=== PATIENT | female | born 1940 | race Caucasian/White ===

== ENCOUNTER 2017-06-18 18:50 | Inpatient (IN) | payer MEDICARE, MEDICAID ==
[2017-06-18 19:02] VITALS: BMI 25.5
[2017-06-18] MEDS ORDERED: Sodium Chloride 0.9% 1,000 ML IV ONE (19:27)
--- NOTE | 2017-06-18 19:33 | C.PDOC ---
History Of Present Illness 76 y/o female with past medical history of hypertension, hyperlipidemia and chronic back pain presents to the ED complaining of abdominal pain along with chest pain associated with vomiting (clear), diarrhea (with black tarry stool) and headache. Pain is constant. Last oral intake was in the morning when patient had toast. Patient also notes dizziness and SOB. Denies any further medical complaints. Chief Complaint (Nursing): Abdominal Pain History Per: Patient History/Exam Limitations: no limitations Past Medical History Reviewed: Historical Data, Nursing Documentation, Vital Signs Vital Signs: Last Vital Signs Temp 97.7 F 06/18/17 19:02 Pulse 60 06/18/17 23:03 Resp 16 06/18/17 23:03 BP 112/80 06/18/17 23:03 Pulse Ox 98 06/18/17 23:03 - Medical History PMH: Back Problems (Chronic back pain), HTN, Hyperlipidemia Surgical History: No Surg Hx Family History: States: Unknown Family Hx - Social History Hx Alcohol Use: No Hx Substance Use: No - Immunization History Hx Tetanus Toxoid Vaccination: No Hx Influenza Vaccination: Yes Hx Pneumococcal Vaccination: Yes Review Of Systems Except As Marked, All Systems Reviewed And Found Negative. (As per HPI, otherwise negative) Cardiovascular: Positive for: Chest Pain Gastrointestinal: Positive for: Vomiting, Abdominal Pain, Diarrhea Neurological: Positive for: Headache, Dizziness Physical Exam - Physical Exam Appears: Other (Patient appears in pain) Skin: Normal Color, Warm, Dry Head: Atraumatic, Normacephalic Eye(s): bilateral: Normal Inspection, PERRL, EOMI Nose: Normal Throat: Normal Neck: Normal, Supple Chest: Symmetrical, No Deformity Cardiovascular: Rhythm Regular, No Murmur Respiratory: Decreased Breath Sounds, No Accessory Muscle Use Gastrointestinal/Abdominal: Tenderness (Abdominal tenderness reduced to chest), No Guarding, No Rebound Rectal: Normal Exam Back: CVA Tenderness Extremity: No Tenderness, No Calf Tenderness, No Deformity, No Swelling Pulses: Left Dorsalis Pedis: Normal, Right Dorsalis Pedis: Normal Neurological/Psych: Oriented x3 ED Course And Treatment - Laboratory Results Result Diagrams: 06/18/17 20:02 06/18/17 20:02 ECG: Interpreted By Me, Viewed By Me ECG Rhythm: Sinus Rhythm ECG Interpretation: Normal Interpretation Of ECG: No ST or ST wave changes Rate From EC O2 Sat by Pulse Oximetry: 97 (RA) Pulse Ox Interpretation: Normal - CT Scan/US CT abd/pel Other Rad Studies (CT/US): Read By Radiologist, Radiology Report Reviewed CT/US Interpretation: EXAM: CT Abdomen and Pelvis With Intravenous Contrast. CLINICAL HISTORY: 76 years old, female; Pain; Abdominal pain; Generalized; Additional info: Abd pain. TECHNIQUE: Axial computed tomography images of the abdomen and pelvis with intravenous contrast. All CT. scans at this facility use one or more dose reduction techniques, viz.: automated exposure control;. ma/kV adjustment per patient size (including targeted exams where dose is matched to indication; i.e. head); or iterative reconstruction technique. Coronal and sagittal reformatted images were created and reviewed. CONTRAST: 100 mL of [id number] administered intravenously. COMPARISON: No relevant prior studies available. FINDINGS: Limitations: Motion artifact - mild. Lower thorax: Minimal atelectasis/scarring. Contrast within distal esophagus may represent reflux. ABDOMEN: Liver: Mild fatty infiltration. Gallbladder and bile ducts: No calcified stones. No ductal dilation. Pancreas: No ductal dilation. No mass. Spleen: Small splenic calcification. No splenomegaly. Adrenals: No mass. Kidneys and ureters: No mass. No hydronephrosis. Stomach and bowel: Few mildly thickened loops of distal small bowel. Mild stranding within. associated small bowel mesentery. No obstruction. Appendix: Normal caliber. No inflammation. PELVIS: Bladder: Unremarkable. Reproductive: Unremarkable as visualized. ABDOMEN and PELVIS: Intraperitoneal space: Trace free fluid within pelvis. No free air. Bones/joints: Degenerative changes of spine. Chronic compression deformity T12 vertebral body. Soft tissues: Small umbilical hernia containing fat. Vasculature: Vnlf-oo-xybivbzz atherosclerotic disease. No aneurysm. Lymph nodes: No pathologically enlarged lymph nodes. IMPRESSION: 1. Enteritis, nonspecific. Consider inflammatory, infectious, or ischemic etiologies. 2. Incidental/non-acute findings are described above. Medical Decision Making Medical Decision Making: Time: 19:27 Plan: Abd pelvis PO and IV contrast EKG BNP Lipase Troponin I CBC w/ diff Chest x-ray Morphine 4mg IVP Ondansetron 4mg IVP Pantoprazole 40mg IVP Sodium chloride 1L IV ED obtain labs Saline lock 3ml NS Urinalysis Reevalaution Will admit to med/surg for abdominal pain under Dr. Sharri Suh's service. Scribe Attestation: Documented by Jeanmarie Suh acting as a scribe for Real Ledezma MD. Scribe Attestation: All medical record entries made by the Scribe were at my direction and personally dictated by me. I have reviewed the chart and agree that the record accurately reflects my personal performance of the history, physical exam, medical decision making, and the department course for this patient. I have also personally directed, reviewed, and agree with the discharge instructions and disposition. Disposition - Disposition Forms: [employer] ([place])
[2017-06-18] MEDS ORDERED: Sodium Chloride 0.9% 1,000 ML ONE (19:47)
[2017-06-18] MEDS ORDERED: Morphine 4 MG/ML VIAL ONE (19:47)
[2017-06-18 20:09] LABS: BASO % 0.2 % (0.0-2.0); EOS % 0.1 % (0.0-4.0); HEMOGLOBIN 13.7 g/dL (11.0-16.0); LYMPH # 0.3 K/uL (1.0-4.3); LYMPH % 2.4 % (20.0-40.0); MEAN CELL VOLUME 91.4 fL (81.0-99.0); MEAN CORPUSCULAR HEMOGLOBIN 30.6 pg (27.0-31.0); MEAN CORPUSCULAR HGB CONC 33.4 g/dL (33.0-37.0); MONO # 0.4 K/uL (0.0-0.8); MONO % 3.4 % (0.0-10.0); NEUT # 11.6 K/uL (1.8-7.0); NEUT % 93.9 % (50.0-75.0); PLATELET COUNT 149 K/uL (130-400); RBC 4.48 Mil/uL (3.80-5.20); RED CELL DISTRIBUTION WIDTH 13.5 % (11.5-14.5); WHITE BLOOD COUNT 12.3 K/uL (4.8-10.8)
[2017-06-18 20:24] LABS: ALB/GLOB RATIO 1.3 (1.0-2.1); ALT/SGPT 43 U/L (9-52); AST/SGOT 30 U/L (14-36); BLOOD UREA NITROGEN 17 mg/dL (7-17); CALCIUM 8.8 mg/dl (8.6-10.4); GFR AFRICAN-AMERICAN > 60; GFR NON-AFRICAN AMERICAN > 60; LIPASE 68 U/L (23-300)
[2017-06-18 20:25] LABS: SQUAMOUS EPITHIAL 1 /hpf (0-5); URINE BACTERIA RARE (<OCC); URINE BILIRUBIN NEGATIVE (NEGATIVE); URINE BLOOD 1+ (NEGATIVE); URINE CALCIUM OXALATE CRYSTALS MANY /hpf (<OCC); URINE CLARITY Hazy (Clear); URINE COLOR Amber (YELLOW); URINE GLUCOSE (UA) NORMAL (Normal); URINE LEUKOCYTE ESTERASE NEG Leu/uL (Negative); URINE NITRATE NEGATIVE (NEGATIVE); URINE PROTEIN NEGATIVE (NEGATIVE); URINE UROBILINOGEN NORMAL mg/dL (0.2-1.0)
[2017-06-18 20:37] LABS: B-TYPE NATRIURETIC PEPTIDE 107 pg/mL (0-900)
[2017-06-18] MEDS ORDERED: Iohexol 240 (50 ml) PO ONE (20:38)
[2017-06-18 20:40] LABS: BANDS 19 % (0-2); LYMPHOCYTE 5 % (20-40); MONOCYTE 3 % (0-10); NEUTROPHIL 73 % (50-75); PLATELET ESTIMATE NORMAL (NORMAL); TOTAL CELLS COUNTED 100
[2017-06-18] MEDS ORDERED: Iohexol 240 (50 ml) ONE (20:42)
[2017-06-18] MEDS ORDERED: Piperacillin/Tazobact 3.375 gm 100 ML IVPB STA (20:47)
[2017-06-18] MEDS ORDERED: Iohexol 300 100 ML IJ ONE (21:04)
[2017-06-18] MEDS ORDERED: Piperacill/Tazo 3.375gm in Dex 3.375 GM/50 ML BAG IVPB ONE (22:00)
[2017-06-18] MEDS ORDERED: Piperacillin/Tazobact 3.375 gm 100 ML IVPB ONE (22:00)
--- NOTE | 2017-06-18 22:55 | CT ---
EXAM: CT Abdomen and Pelvis With Intravenous Contrast CLINICAL HISTORY: 76 years old, female; Pain; Abdominal pain; Generalized; Additional info: Abd pain TECHNIQUE: Axial computed tomography images of the abdomen and pelvis with intravenous contrast. All CT scans at this facility use one or more dose reduction techniques, viz.: automated exposure control; ma/kV adjustment per patient size (including targeted exams where dose is matched to indication; i.e. head); or iterative reconstruction technique. Coronal and sagittal reformatted images were created and reviewed. CONTRAST: 100 mL of [id number] administered intravenously. COMPARISON: No relevant prior studies available. FINDINGS: Limitations: Motion artifact - mild. Lower thorax: Minimal atelectasis/scarring. Contrast within distal esophagus may represent reflux. ABDOMEN: Liver: Mild fatty infiltration. Gallbladder and bile ducts: No calcified stones. No ductal dilation. Pancreas: No ductal dilation. No mass. Spleen: Small splenic calcification. No splenomegaly. Adrenals: No mass. Kidneys and ureters: No mass. No hydronephrosis. Stomach and bowel: Few mildly thickened loops of distal small bowel. Mild stranding within associated small bowel mesentery. No obstruction. Appendix: Normal caliber. No inflammation. PELVIS: Bladder: Unremarkable. Reproductive: Unremarkable as visualized. ABDOMEN and PELVIS: Intraperitoneal space: Trace free fluid within pelvis. No free air. Bones/joints: Degenerative changes of spine. Chronic compression deformity T12 vertebral body. Soft tissues: Small umbilical hernia containing fat. Vasculature: Quyp-gj-ryfvhcah atherosclerotic disease. No aneurysm. Lymph nodes: No pathologically enlarged lymph nodes. IMPRESSION: 1. Enteritis, nonspecific. Consider inflammatory, infectious, or ischemic etiologies. 2. Incidental/non-acute findings are described above.
[2017-06-19] MEDS ORDERED: HYDROmorphone 1 mg/ml ISec IVP PRN (00:32)
[2017-06-19 01:42] VITALS: RESP 20
[2017-06-19] MEDS: Ciprofloxacin 400mg/200ml D5W 400 MG/200 ML BAG IVPB SCH ×2 (02:07→13:58)
[2017-06-19] MEDS: metroNIDAZOLE IV 500 mg/100 ml 500 MG/100 ML BAG IVPB SCH ×3 (05:55→22:04)
--- NOTE | 2017-06-19 06:29 | CP.PCM.CON ---
<Damaso Saldana - Last Filed: 06/19/17 09:26> History of Present Illness - History of Present Illness History of Present Illness: GI Consult Note: 76 F with PMHx of HTN, HLD, and chronic back pain presents to the ED with abdominal pain accompanied with nausea and vomiting . Patient states yesterday morning at 8am she started to have severe periumbilical abdominal. The pain was non radiating and 7/10 at its worse. The abdominal pain was associated with 2 bouts of non bloody non bilious vomiting and more than 15 episodes of non bloody diarrhea. She states that she tried going to [place] yesterday but she wasn't able to go due to the diarrhea. She denied having any of these symptoms before. Denied any sick contacts or recent travel. No recent history of antibiotics use. Denies any fever, chills, sob, chest pain, palpitations, urinary symptoms. In the ED patient found to have leukocytosis to 12.1 with bandemia, CT abd&pelv with IV contrast showed enteritis - consider inflammatory , infectious, or ischemia. GI team consulted for abdominal pain. 12 Point ROS performed and negative other than stated above. PMH: HTN, HLD, and chronic back pain PSHx: denies Med: refer to [facility] ALL: NKA FH: denies SH: Retired; denies any history of smoking, etoh abuse, or recreational drug use Endo Hx: Endoscopy performed 2 years ago - and colonoscopy 5 years ago - both normal Review of Systems - Review of Systems All systems: reviewed and no additional remarkable complaints except Past Patient History - Past Social History Smoking Status: Never Smoked - CARDIAC Hx Hypertension: Yes - ENDOCRINE/METABOLIC Hx Diabetes Mellitus Type 1: No - MUSCULOSKELETAL/RHEUMATOLOGICAL Hx Falls: No - PSYCHIATRIC Hx Substance Use: No - SURGICAL HISTORY Hx Surgeries: No Other/Comment: HEMMORHOIDECTOMY 10 YRS AGO - ANESTHESIA Hx Anesthesia: Yes Hx Anesthesia Reactions: No Meds Allergies/Adverse Reactions: Allergies Allergy/AdvReac Type Severity Reaction Status Date / Time No Known Allergies Allergy Verified 06/18/17 19:00 - Medications Medications: Current Medications Amlodipine Besylate (Norvasc) 5 mg PO DAILY [facility] Celecoxib (Celebrex) 100 mg PO DAILY [facility] Enoxaparin Sodium (Lovenox) 40 mg SC DAILY [facility] Home Med (Icosapent Ethyl [Vascepa]) 1 gm PO DAILY [facility] Home Med (Simvastatin [Simvastatin]) 20 mg PO DAILY [facility] Hydromorphone HCl (Dilaudid) 1 mg IVP Q8H PRN PRN Reason: Pain, severe (8-10) Ciprofloxacin (Cipro 400mg/200ml Dsw) 400 mg in 200 mls @ 133 mls/hr IVPB Q12H [facility] Last Admin: 06/19/17 02:07 Dose: 133 mls/hr Metronidazole (Flagyl) 500 mg in 100 mls @ 100 mls/hr IVPB Q8 [facility] Last Admin: 06/19/17 05:55 Dose: 100 mls/hr Pantoprazole Sodium (Protonix Inj) 40 mg IVP DAILY [facility] Physical Exam - Constitutional Appears: In Acute Distress - Head Exam Head Exam: ATRAUMATIC, NORMOCEPHALIC - Eye Exam Eye Exam: EOMI - ENT Exam ENT Exam: Mucous Membranes Moist - Respiratory Exam Respiratory Exam: Clear to Auscultation Bilateral, NORMAL BREATHING PATTERN. absent: Rales, Wheezes - Cardiovascular Exam Cardiovascular Exam: RRR, +S1, +S2 - GI/Abdominal Exam GI & Abdominal Exam: Normal Bowel Sounds, Soft. absent: Distended, Guarding, Organomegaly, Tenderness - Extremities Exam Extremities exam: Negative for: calf tenderness, tenderness - Neurological Exam Neurological exam: Alert, Oriented x3 - Psychiatric Exam Psychiatric exam: Normal Mood - Skin Skin Exam: Dry, Intact, Warm Results - Vital Signs Recent Vital Signs: Last Vital Signs Temp 98.4 F 06/19/17 04:15 Pulse 64 06/19/17 04:15 Resp 20 06/19/17 04:15 BP 100/59 L 06/19/17 04:15 Pulse Ox 98 06/19/17 04:15 - Labs Result Diagrams: 06/18/17 20:02 06/18/17 20:02 Labs: Laboratory Results - last 24 hr 06/18/17 06/18/17 06/18/17 20:02 20:02 20:02 WBC 12.3 H RBC 4.48 Hgb 13.7 Hct 40.9 MCV 91.4 MCH 30.6 MCHC 33.4 RDW 13.5 Plt Count 149 MPV 10.0 Neut % (Auto) 93.9 H Lymph % (Auto) 2.4 L [place] % (Auto) 3.4 Eos % (Auto) 0.1 Baso % (Auto) 0.2 Neut # 11.6 H Lymph # 0.3 L [place] # 0.4 Eos # 0.0 Baso # 0.0 Neutrophils % (Manual) 73 Band Neutrophils % 19 H* Lymphocytes % (Manual) 5 L Monocytes % (Manual) 3 Platelet Estimate Normal RBC Morphology Normal Sodium 131 L Potassium 3.7 Chloride 101 Carbon Dioxide 20 L Anion Gap 13 BUN 17 Creatinine 0.7 Est GFR ( Amer) > 60 Est GFR (Non-Af Amer) > 60 Random Glucose 138 H Lactic Acid Calcium 8.8 Total Bilirubin 1.2 AST 30 ALT 43 Alkaline Phosphatase 59 Troponin I < 0.0120 NT-Pro-B Natriuret Pep 107 Total Protein 7.1 Albumin 4.0 Globulin 3.1 Albumin/Globulin Ratio 1.3 Lipase 68 Urine Color [place] Urine Clarity Hazy Urine pH 5.0 Ur Specific [place] 1.029 Urine Protein Negative Urine Glucose (UA) Normal Urine Ketones Negative Urine Blood 1+ H Urine Nitrate Negative Urine Bilirubin Negative Urine Urobilinogen Normal Ur Leukocyte Esterase Neg Urine WBC (Auto) 3 Urine RBC (Auto) 19 H Ur Squamous Epith Cells 1 Calcium Oxalate Crystal Many H Urine Bacteria Rare 06/18/17 21:16 WBC RBC Hgb Hct MCV MCH MCHC RDW Plt Count MPV Neut % (Auto) Lymph % (Auto) [place] % (Auto) Eos % (Auto) Baso % (Auto) Neut # Lymph # [place] # Eos # Baso # Neutrophils % (Manual) Band Neutrophils % Lymphocytes % (Manual) Monocytes % (Manual) Platelet Estimate RBC Morphology Sodium Potassium Chloride Carbon Dioxide Anion Gap BUN Creatinine Est GFR ( Amer) Est GFR (Non-Af Amer) Random Glucose Lactic Acid 1.8 Calcium Total Bilirubin AST ALT Alkaline Phosphatase Troponin I NT-Pro-B Natriuret Pep Total Protein Albumin Globulin Albumin/Globulin Ratio Lipase Urine Color Urine Clarity Urine pH Ur Specific [place] Urine Protein Urine Glucose (UA) Urine Ketones Urine Blood Urine Nitrate Urine Bilirubin Urine Urobilinogen Ur Leukocyte Esterase Urine WBC (Auto) Urine RBC (Auto) Ur Squamous Epith Cells Calcium Oxalate Crystal Urine Bacteria Assessment & Plan - Assessment and Plan (Free Text) Assessment: 76 F with PMHx of HTN, HLD, and chronic back pain presents to the ED with abdominal pain accompanied with nausea and vomiting. CT abd&pelv with IV contrast showed enteritis - consider inflammatory, infectious, or ischemia. GI team consulted for abdominal pain. 1. Enteritis 2. Hypertension 3. HLD - Cont antibiotics with Cipro and Flagyl - Antiemetics as needed - Pain control - Cont with Protonix 40mg IVP daily - F/u blood and urine culture - Will f/u stool work up - Will try to obtain records of prior endoscopy reports - will cont to monitor patients clinical course Case and plan was reviewed and discussed in detail with Dr Pimentel. <Niko Pimentel - Last Filed: 06/19/17 10:14> Meds - Medications Medications: Current Medications Amlodipine Besylate (Norvasc) 5 mg PO DAILY [facility] Celecoxib (Celebrex) 100 mg PO DAILY [facility] Enoxaparin Sodium (Lovenox) 40 mg SC DAILY [facility] Home Med (Icosapent Ethyl [Vascepa]) 1 gm PO DAILY [facility] Home Med (Simvastatin [Simvastatin]) 20 mg PO DAILY [facility] Hydromorphone HCl (Dilaudid) 1 mg IVP Q8H PRN PRN Reason: Pain, severe (8-10) Ciprofloxacin (Cipro 400mg/200ml Dsw) 400 mg in 200 mls @ 133 mls/hr IVPB Q12H [facility] Last Admin: 06/19/17 02:07 Dose: 133 mls/hr Metronidazole (Flagyl) 500 mg in 100 mls @ 100 mls/hr IVPB Q8 [facility] Last Admin: 06/19/17 05:55 Dose: 100 mls/hr Pantoprazole Sodium (Protonix Inj) 40 mg IVP DAILY [facility] Results - Vital Signs Recent Vital Signs: Last Vital Signs Temp 99.2 F 06/19/17 08:13 Pulse 69 06/19/17 08:13 Resp 20 06/19/17 08:13 BP 101/63 06/19/17 08:13 Pulse Ox 96 06/19/17 08:13 - Labs Result Diagrams: 06/18/17 20:02 06/18/17 20:02 Labs: Laboratory Results - last 24 hr 06/18/17 06/18/17 06/18/17 20:02 20:02 20:02 WBC 12.3 H RBC 4.48 Hgb 13.7 Hct 40.9 MCV 91.4 MCH 30.6 MCHC 33.4 RDW 13.5 Plt Count 149 MPV 10.0 Neut % (Auto) 93.9 H Lymph % (Auto) 2.4 L [place] % (Auto) 3.4 Eos % (Auto) 0.1 Baso % (Auto) 0.2 Neut # 11.6 H Lymph # 0.3 L [place] # 0.4 Eos # 0.0 Baso # 0.0 Neutrophils % (Manual) 73 Band Neutrophils % 19 H* Lymphocytes % (Manual) 5 L Monocytes % (Manual) 3 Platelet Estimate Normal RBC Morphology Normal Sodium 131 L Potassium 3.7 Chloride 101 Carbon Dioxide 20 L Anion Gap 13 BUN 17 Creatinine 0.7 Est GFR ( Amer) > 60 Est GFR (Non-Af Amer) > 60 Random Glucose 138 H Lactic Acid Calcium 8.8 Total Bilirubin 1.2 AST 30 ALT 43 Alkaline Phosphatase 59 Troponin I < 0.0120 NT-Pro-B Natriuret Pep 107 Total Protein 7.1 Albumin 4.0 Globulin 3.1 Albumin/Globulin Ratio 1.3 Lipase 68 Urine Color [place] Urine Clarity Hazy Urine pH 5.0 Ur Specific [place] 1.029 Urine Protein Negative Urine Glucose (UA) Normal Urine Ketones Negative Urine Blood 1+ H Urine Nitrate Negative Urine Bilirubin Negative Urine Urobilinogen Normal Ur Leukocyte Esterase Neg Urine WBC (Auto) 3 Urine RBC (Auto) 19 H Ur Squamous Epith Cells 1 Calcium Oxalate Crystal Many H Urine Bacteria Rare 06/18/17 21:16 WBC RBC Hgb Hct MCV MCH MCHC RDW Plt Count MPV Neut % (Auto) Lymph % (Auto) [place] % (Auto) Eos % (Auto) Baso % (Auto) Neut # Lymph # [place] # Eos # Baso # Neutrophils % (Manual) Band Neutrophils % Lymphocytes % (Manual) Monocytes % (Manual) Platelet Estimate RBC Morphology Sodium Potassium Chloride Carbon Dioxide Anion Gap BUN Creatinine Est GFR ( Amer) Est GFR (Non-Af Amer) Random Glucose Lactic Acid 1.8 Calcium Total Bilirubin AST ALT Alkaline Phosphatase Troponin I NT-Pro-B Natriuret Pep Total Protein Albumin Globulin Albumin/Globulin Ratio Lipase Urine Color Urine Clarity Urine pH Ur Specific [place] Urine Protein Urine Glucose (UA) Urine Ketones Urine Blood Urine Nitrate Urine Bilirubin Urine Urobilinogen Ur Leukocyte Esterase Urine WBC (Auto) Urine RBC (Auto) Ur Squamous Epith Cells Calcium Oxalate Crystal Urine Bacteria Attending/Attestation - Attestation I have personally seen and examined this patient.: Yes I have fully participated in the care of the patient.: Yes I have reviewed all pertinent clinical information: Yes Notes (Text): 06/19/17 10:08 I have seen and examined patient with GI fellow and biomedical service engineer. Agree with above documentation with the following additions. In brief, she is a 76 year old female with history of HTN, hyperlipidemia who presents to hospital with complaint of abdominal pain, nausea, vomiting, diarrhea which started suddenly yesterday. Prior to this she was in usual state of health. She describes a jairo-umbilical pain which is non-radiating, 7/10 intensity, worsened with attempted meal consumption. This was associated with two episodes of vomiting along with multiple watery, non-bloody episodes of large volume diarrhea. She denies recent antibiotic therapy, sick contacts, travel, or unusual food consumption. She denies fever/chills, weight loss, or blood in stool. She had an EGD/colonoscopy 2 years ago which were normal according to patient. Review of vitals from today are normal. Family history: reviewed, patient denies history of GI malignancies HTN Hyperlipidemia Sudden onset abdominal pain, vomiting, diarrhea CT imaging reviewed by me showing non-specific enteritis with small bowel wall thickening - Full liquid diet as tolerated - Continue with supportive care, IVF hydration therapy, anti-emetic therapy PRN - Obtain stool studies (culture, O/P, c-difficile, giardia) - Continue with antibiotic therapy for time being - Obtain prior endoscopic reports - Follow up blood culture results - Will continue to monitor patient clinical course
--- NOTE | 2017-06-19 07:50 | RAD ---
HISTORY: abd pain COMPARISON: None available. TECHNIQUE: Chest, one view. FINDINGS: LUNGS: Biapical pleural thickening. Right hilar prominence. No focal consolidation. Please note that chest x-ray has limited sensitivity for the detection of pulmonary masses. PLEURA: No significant pleural effusion identified. No definite pneumothorax . CARDIOVASCULAR: Heart size appears top normal. Ectatic aorta. Atherosclerotic calcifications of the aorta. OSSEOUS STRUCTURES: Degenerative changes of the spine. VISUALIZED UPPER ABDOMEN: Unremarkable. OTHER FINDINGS: None. IMPRESSION: Biapical pleural thickening. Right hilar prominence.
[2017-06-19] MEDS ORDERED: Home Med 1 UNIT (Simvastatin [Simvastatin] 20 MG) PO SCH (10:00)
[2017-06-19] MEDS: Enoxaparin 40 mg Syringe SC SCH (10:29)
--- NOTE | 2017-06-19 12:11 | CP.PCM.HP ---
Past Patient History - Past Social History Smoking Status: Never Smoked - CARDIAC Hx Hypertension: Yes - ENDOCRINE/METABOLIC Hx Diabetes Mellitus Type 1: No - MUSCULOSKELETAL/RHEUMATOLOGICAL Hx Falls: No - PSYCHIATRIC Hx Substance Use: No - SURGICAL HISTORY Hx Surgeries: No Other/Comment: HEMMORHOIDECTOMY 10 YRS AGO - ANESTHESIA Hx Anesthesia: Yes Hx Anesthesia Reactions: No Meds Allergies/Adverse Reactions: Allergies Allergy/AdvReac Type Severity Reaction Status Date / Time No Known Allergies Allergy Verified 06/18/17 19:00 Physical Exam - Constitutional Appears: Well - Head Exam Head Exam: ATRAUMATIC, NORMAL INSPECTION, NORMOCEPHALIC - Eye Exam Eye Exam: EOMI, Normal appearance, PERRL Pupil Exam: NORMAL ACCOMODATION, PERRL - ENT Exam ENT Exam: Mucous Membranes Moist, Normal Exam - Neck Exam Neck exam: Positive for: Normal Inspection - Respiratory Exam Respiratory Exam: Decreased Breath Sounds - Cardiovascular Exam Cardiovascular Exam: REGULAR RHYTHM, +S1, +S2 - GI/Abdominal Exam GI & Abdominal Exam: Diminished Bowel Sounds, Soft - Rectal Exam Rectal Exam: Deferred Results - Vital Signs Recent Vital Signs: Last Vital Signs Temp 99.2 F 06/19/17 08:13 Pulse 69 06/19/17 08:13 Resp 20 06/19/17 08:13 BP 101/63 06/19/17 08:13 Pulse Ox 96 06/19/17 08:13 - Labs Result Diagrams: 06/19/17 14:22 06/19/17 14:22 Labs: Laboratory Results - last 24 hr 06/18/17 06/18/17 06/18/17 20:02 20:02 20:02 WBC 12.3 H RBC 4.48 Hgb 13.7 Hct 40.9 MCV 91.4 MCH 30.6 MCHC 33.4 RDW 13.5 Plt Count 149 MPV 10.0 Neut % (Auto) 93.9 H Lymph % (Auto) 2.4 L [place] % (Auto) 3.4 Eos % (Auto) 0.1 Baso % (Auto) 0.2 Neut # 11.6 H Lymph # 0.3 L [place] # 0.4 Eos # 0.0 Baso # 0.0 Neutrophils % (Manual) 73 Band Neutrophils % 19 H* Lymphocytes % (Manual) 5 L Monocytes % (Manual) 3 Platelet Estimate Normal RBC Morphology Normal Sodium 131 L Potassium 3.7 Chloride 101 Carbon Dioxide 20 L Anion Gap 13 BUN 17 Creatinine 0.7 Est GFR ( Amer) > 60 Est GFR (Non-Af Amer) > 60 Random Glucose 138 H Lactic Acid Calcium 8.8 Total Bilirubin 1.2 AST 30 ALT 43 Alkaline Phosphatase 59 Troponin I < 0.0120 NT-Pro-B Natriuret Pep 107 Total Protein 7.1 Albumin 4.0 Globulin 3.1 Albumin/Globulin Ratio 1.3 Lipase 68 Urine Color [place] Urine Clarity Hazy Urine pH 5.0 Ur Specific [place] 1.029 Urine Protein Negative Urine Glucose (UA) Normal Urine Ketones Negative Urine Blood 1+ H Urine Nitrate Negative Urine Bilirubin Negative Urine Urobilinogen Normal Ur Leukocyte Esterase Neg Urine WBC (Auto) 3 Urine RBC (Auto) 19 H Ur Squamous Epith Cells 1 Calcium Oxalate Crystal Many H Urine Bacteria Rare 06/18/17 21:16 WBC RBC Hgb Hct MCV MCH MCHC RDW Plt Count MPV Neut % (Auto) Lymph % (Auto) [place] % (Auto) Eos % (Auto) Baso % (Auto) Neut # Lymph # [place] # Eos # Baso # Neutrophils % (Manual) Band Neutrophils % Lymphocytes % (Manual) Monocytes % (Manual) Platelet Estimate RBC Morphology Sodium Potassium Chloride Carbon Dioxide Anion Gap BUN Creatinine Est GFR ( Amer) Est GFR (Non-Af Amer) Random Glucose Lactic Acid 1.8 Calcium Total Bilirubin AST ALT Alkaline Phosphatase Troponin I NT-Pro-B Natriuret Pep Total Protein Albumin Globulin Albumin/Globulin Ratio Lipase Urine Color Urine Clarity Urine pH Ur Specific [place] Urine Protein Urine Glucose (UA) Urine Ketones Urine Blood Urine Nitrate Urine Bilirubin Urine Urobilinogen Ur Leukocyte Esterase Urine WBC (Auto) Urine RBC (Auto) Ur Squamous Epith Cells Calcium Oxalate Crystal Urine Bacteria Assessment & Plan - Assessment and Plan (Free Text) Plan: will hld lovenox if pt drops hgb no black stool today anayeli as ordered s/p gi consult appreciated med reviewed cbc cmp every day
[2017-06-19] MEDS: Dextrose 5%/0.45% NS 1,000 ML IV SCH (13:21)
[2017-06-19 14:33] LABS: BASO % 0.4 % (0.0-2.0); EOS % 0.4 % (0.0-4.0); HEMOGLOBIN 12.2 g/dL (11.0-16.0); LYMPH # 0.7 K/uL (1.0-4.3); LYMPH % 9.5 % (20.0-40.0); MEAN CELL VOLUME 91.2 fL (81.0-99.0); MEAN CORPUSCULAR HEMOGLOBIN 31.4 pg (27.0-31.0); MEAN CORPUSCULAR HGB CONC 34.5 g/dL (33.0-37.0); MEAN PLATELET VOLUME 9.8 fL (7.2-11.7); MONO # 0.3 K/uL (0.0-0.8); MONO % 4.5 % (0.0-10.0); NEUT # 6.2 K/uL (1.8-7.0); NEUT % 85.2 % (50.0-75.0); PLATELET COUNT 134 K/uL (130-400); RBC 3.88 Mil/uL (3.80-5.20); RED CELL DISTRIBUTION WIDTH 13.2 % (11.5-14.5); WHITE BLOOD COUNT 7.2 K/uL (4.8-10.8)
[2017-06-19 14:55] LABS: CALCIUM 8.2 mg/dl (8.6-10.4)
[2017-06-19 14:56] LABS: ALB/GLOB RATIO 1.4 (1.0-2.1); ALBUMIN 3.4 g/dL (3.5-5.0); ALT/SGPT 35 U/L (9-52); AST/SGOT 24 U/L (14-36); BLOOD UREA NITROGEN 10 mg/dL (7-17); GFR AFRICAN-AMERICAN > 60; GFR NON-AFRICAN AMERICAN > 60
[2017-06-19 15:09] LABS: BANDS 8 % (0-2); LYMPHOCYTE 10 % (20-40); MONOCYTE 1 % (0-10); NEUTROPHIL 81 % (50-75); PLATELET ESTIMATE NORMAL (NORMAL); TOTAL CELLS COUNTED 100
[2017-06-20] MEDS: Ciprofloxacin 400mg/200ml D5W 400 MG/200 ML BAG IVPB SCH ×2 (00:48→11:26)
[2017-06-20] MEDS: Dextrose 5%/0.45% NS 1,000 ML IV SCH ×2 (00:53→02:44)
[2017-06-20] MEDS: metroNIDAZOLE IV 500 mg/100 ml 500 MG/100 ML BAG IVPB SCH ×3 (05:42→21:02)
--- NOTE | 2017-06-20 06:58 | CP.PCM.PN ---
<Damaso Saldana - Last Filed: 06/20/17 09:24> Subjective - Date & Time of Evaluation Date of Evaluation: 06/20/17 Time of Evaluation: 06:00 - Subjective Subjective: GI Progress note: Pt seen and examined at bedside. No acute events overnight. Pt states that she had 6 -7 episodes of diarrhea yesterday and 1 episodes this morning. Denies any abd pain, nausea or vomiting. Tolerating liquid diet. 12 Point ROS performed and negative other than stated above. Objective - Vital Signs/Intake and Output Vital Signs (last 24 hours): Temp Pulse Resp BP Pulse Ox 98.1 F 61 20 105/62 95 06/19/17 23:35 06/19/17 23:35 06/19/17 23:35 06/19/17 23:35 06/19/17 23:35 Intake and Output: 06/19/17 06/20/17 18:59 06:59 Intake Total 300 580 Balance 300 580 - Medications Medications: Current Medications Amlodipine Besylate (Norvasc) 5 mg PO DAILY [facility] Last Admin: 06/19/17 10:28 Dose: 5 mg Celecoxib (Celebrex) 100 mg PO DAILY [facility] Last Admin: 06/19/17 10:28 Dose: 100 mg Enoxaparin Sodium (Lovenox) 40 mg SC DAILY [facility] Last Admin: 06/19/17 10:29 Dose: 40 mg Hydromorphone HCl (Dilaudid) 1 mg IVP Q8H PRN PRN Reason: Pain, severe (8-10) Ciprofloxacin (Cipro 400mg/200ml Dsw) 400 mg in 200 mls @ 133 mls/hr IVPB Q12H [facility] Last Admin: 06/20/17 00:48 Dose: 133 mls/hr Metronidazole (Flagyl) 500 mg in 100 mls @ 100 mls/hr IVPB Q8 [facility] Last Admin: 06/20/17 05:42 Dose: 100 mls/hr Dextrose/Sodium Chloride (Dextrose 5%/0.45% Ns 1000 Ml) 1,000 mls @ 100 mls/hr IV .Q10H [facility] Last Admin: 06/20/17 02:44 Dose: 100 mls/hr Lvybi-2-[id number] Ethyl Esters (Lovaza) 1 gm PO DAILY [facility] Pantoprazole Sodium (Protonix Ec Tab) 40 mg PO DAILY [facility] Rosuvastatin Calcium (Crestor) 20 mg PO HS [facility] Last Admin: 06/19/17 22:04 Dose: 20 mg - Labs Labs: 06/19/17 14:22 06/19/17 14:22 - Constitutional Appears: No Acute Distress - Head Exam Head Exam: ATRAUMATIC, NORMOCEPHALIC - Eye Exam Eye Exam: EOMI Pupil Exam: NORMAL ACCOMODATION - ENT Exam ENT Exam: Mucous Membranes Moist - Neck Exam Neck Exam: Normal Inspection - Respiratory Exam Respiratory Exam: Clear to Ausculation Bilateral. absent: Rales, Wheezes - Cardiovascular Exam Cardiovascular Exam: +S1, +S2 - GI/Abdominal Exam GI & Abdominal Exam: Soft, Normal Bowel Sounds. absent: Distended, Tenderness, Organomegaly - Extremities Exam Extremities Exam: absent: Calf Tenderness - Neurological Exam Neurological Exam: Alert, Awake, Oriented x3 - Psychiatric Exam Psychiatric exam: Normal Mood - Skin Skin Exam: Dry, Intact Assessment and Plan - Assessment and Plan (Free Text) Assessment: 76 F with PMHx of HTN, HLD, and chronic back pain presents to the ED with abdominal pain accompanied with nausea and vomiting. CT abd&pelv with IV contrast showed enteritis - consider inflammatory, infectious, or ischemia. GI team consulted for abdominal pain. 1. Non-specific enteritis with small bowel wall thickening 2. Sudden onset abdominal pain, vomiting, diarrhea 3. Hypertension 4. HLD - Full liquid diet as tolerated - Antibiotics with Cipro and Flagyl - Repelete elctrolytes as needed - Anti-emetic therapy PRN - Protonix 40mg IVP daily - F/u blood culture - F/u stool work up - C. diff negative - Patient would benefit from outpatient elective colonoscopy - Will cont to monitor patients clinical course Case and plan was reviewed and discussed in detail with Dr Lares. <Brandyn Lares - Last Filed: 06/20/17 14:01> Objective - Vital Signs/Intake and Output Vital Signs (last 24 hours): Temp Pulse Resp BP Pulse Ox 97.4 F L 73 20 106/65 96 06/20/17 09:45 06/20/17 11:45 06/20/17 09:45 06/20/17 09:45 06/20/17 11:45 Intake and Output: 06/20/17 06/20/17 06:59 18:59 Intake Total 580 Balance 580 - Medications Medications: Current Medications Amlodipine Besylate (Norvasc) 5 mg PO DAILY [facility] Last Admin: 06/20/17 09:26 Dose: 5 mg Celecoxib (Celebrex) 100 mg PO DAILY [facility] Last Admin: 06/20/17 09:25 Dose: 100 mg Enoxaparin Sodium (Lovenox) 40 mg SC DAILY [facility] Last Admin: 06/20/17 09:26 Dose: 40 mg Hydromorphone HCl (Dilaudid) 1 mg IVP Q8H PRN PRN Reason: Pain, severe (8-10) Metronidazole (Flagyl) 500 mg in 100 mls @ 100 mls/hr IVPB Q8 [facility] Last Admin: 06/20/17 05:42 Dose: 100 mls/hr Potassium Chloride 10 meq/ (Dextrose/Sodium Chloride) 1,005 mls @ 100 mls/hr IV .Q10H3M [facility] Last Admin: 06/20/17 11:14 Dose: 100 mls/hr Ciprofloxacin (Cipro 400mg/200ml Dsw) 400 mg in 200 mls @ 133 mls/hr IVPB Q12H [facility] Last Admin: 06/20/17 11:26 Dose: 133 mls/hr Kavhw-0-Wjkq Ethyl Esters (Lovaza) 1 gm PO DAILY [facility] Last Admin: 06/20/17 09:26 Dose: 1 gm Pantoprazole Sodium (Protonix Ec Tab) 40 mg PO DAILY [facility] Last Admin: 06/20/17 09:26 Dose: 40 mg Rosuvastatin Calcium (Crestor) 20 mg PO HS [facility] Last Admin: 06/19/17 22:04 Dose: 20 mg - Labs Labs: 06/20/17 07:23 06/20/17 07:23 Attending/Attestation - Attestation I have personally seen and examined this patient.: Yes I have fully participated in the care of the patient.: Yes I have reviewed all pertinent clinical information, including history, physical exam and plan: Yes Notes (Text): 06/20/17 13:55 76 year old female with h/o HTN, HLD, Back pain F with PMHx of HTN, HLD, and chronic back pain with abdominal pain and diarrhea, with CT showing enteritis. 1. Enteritis 2. Abdominal pain 3. Diarrhea Plan: -await stool studies -continue antibiotics empirically -improving -advance diet as tolerated -pain resolved -outpatient colonocsopy in 6-8 weeks -supportive care
[2017-06-20 07:50] LABS: BASO % 0.4 % (0.0-2.0); EOS % 1.1 % (0.0-4.0); LYMPH # 0.7 K/uL (1.0-4.3); LYMPH % 15.6 % (20.0-40.0); MEAN CORPUSCULAR HEMOGLOBIN 31.5 pg (27.0-31.0); MEAN CORPUSCULAR HGB CONC 34.6 g/dL (33.0-37.0); MEAN PLATELET VOLUME 9.8 fL (7.2-11.7); MONO # 0.3 K/uL (0.0-0.8); MONO % 7.5 % (0.0-10.0); NEUT # 3.3 K/uL (1.8-7.0); NEUT % 75.4 % (50.0-75.0); RBC 3.81 Mil/uL (3.80-5.20); RED CELL DISTRIBUTION WIDTH 13.6 % (11.5-14.5); WHITE BLOOD COUNT 4.4 K/uL (4.8-10.8)
[2017-06-20 08:12] LABS: ALB/GLOB RATIO 1.1 (1.0-2.1); ALBUMIN 3.1 g/dL (3.5-5.0); ALT/SGPT 42 U/L (9-52); AST/SGOT 34 U/L (14-36); BLOOD UREA NITROGEN 8 mg/dL (7-17); CALCIUM 8.1 mg/dl (8.6-10.4); GFR AFRICAN-AMERICAN > 60; GFR NON-AFRICAN AMERICAN > 60
[2017-06-20] MEDS: Enoxaparin 40 mg Syringe SC SCH (09:26)
[2017-06-20] MEDS: Pantoprazole 40 mg EC Tab PO SCH (09:26)
[2017-06-20] MEDS: Omega-3-Acid Ethyl Esters 1 GM Cap PO SCH (09:26)
[2017-06-20] MEDS ORDERED: Potassium Chloride 20 mEq ER Tab PO ONE (10:00)
--- NOTE | 2017-06-20 11:04 | CARD ---
APPROVED REPORT EKG Measurement Heart [id number] <Conclusion> Normal sinus rhythm Normal ECG
[2017-06-20] MEDS: Potassium Chloride 10 MEQ in Dextrose 5%/0.45% NS 1,000 ML IV SCH ×2 (11:14→19:57)
[2017-06-20] MEDS ORDERED: Potassium Chloride 20 mEq ER Tab PO STA (16:57)
--- NOTE | 2017-06-20 18:37 | CP.PCM.PN ---
Subjective - Date & Time of Evaluation Date of Evaluation: 06/20/17 Time of Evaluation: 10:00 - Subjective Subjective: clinically same Objective - Vital Signs/Intake and Output Vital Signs (last 24 hours): Temp Pulse Resp BP Pulse Ox 97.9 F 65 20 108/66 95 06/20/17 16:26 06/20/17 16:26 06/20/17 16:26 06/20/17 16:26 06/20/17 16:26 Intake and Output: 06/20/17 06/20/17 06:59 18:59 Intake Total 580 480 Balance 580 480 - Medications Medications: Current Medications Amlodipine Besylate (Norvasc) 5 mg PO DAILY [facility] Last Admin: 06/20/17 09:26 Dose: 5 mg Celecoxib (Celebrex) 100 mg PO DAILY [facility] Last Admin: 06/20/17 09:25 Dose: 100 mg Enoxaparin Sodium (Lovenox) 40 mg SC DAILY [facility] Last Admin: 06/20/17 09:26 Dose: 40 mg Hydromorphone HCl (Dilaudid) 1 mg IVP Q8H PRN PRN Reason: Pain, severe (8-10) Metronidazole (Flagyl) 500 mg in 100 mls @ 100 mls/hr IVPB Q8 [facility] Last Admin: 06/20/17 14:08 Dose: 100 mls/hr Potassium Chloride 10 meq/ (Dextrose/Sodium Chloride) 1,005 mls @ 100 mls/hr IV .Q10H3M [facility] Last Admin: 06/20/17 11:14 Dose: 100 mls/hr Ciprofloxacin (Cipro 400mg/200ml Dsw) 400 mg in 200 mls @ 133 mls/hr IVPB Q12H [facility] Last Admin: 06/20/17 11:26 Dose: 133 mls/hr Qzecy-1-Cpps Ethyl Esters (Lovaza) 1 gm PO DAILY [facility] Last Admin: 06/20/17 09:26 Dose: 1 gm Pantoprazole Sodium (Protonix Ec Tab) 40 mg PO DAILY [facility] Last Admin: 06/20/17 09:26 Dose: 40 mg Rosuvastatin Calcium (Crestor) 20 mg PO HS [facility] Last Admin: 06/19/17 22:04 Dose: 20 mg - Labs Labs: 06/20/17 07:23 06/20/17 07:23 - Constitutional Appears: Well - Head Exam Head Exam: ATRAUMATIC, NORMAL INSPECTION, NORMOCEPHALIC - Eye Exam Eye Exam: EOMI, Normal appearance, PERRL Pupil Exam: NORMAL ACCOMODATION, PERRL - ENT Exam ENT Exam: Mucous Membranes Moist, Normal Exam - Neck Exam Neck Exam: Full ROM, Normal Inspection. absent: Lymphadenopathy - Respiratory Exam Respiratory Exam: Decreased Breath Sounds - Cardiovascular Exam Cardiovascular Exam: REGULAR RHYTHM, +S1, +S2 - GI/Abdominal Exam GI & Abdominal Exam: Soft, Diminished Bowel Sounds - Rectal Exam Rectal Exam: Deferred
[2017-06-20] MEDS ORDERED: Aritificial Tears (15ml) OU PRN (20:01)
[2017-06-21] MEDS: Ciprofloxacin 400mg/200ml D5W 400 MG/200 ML BAG IVPB SCH ×2 (00:10→12:18)
[2017-06-21] MEDS: metroNIDAZOLE IV 500 mg/100 ml 500 MG/100 ML BAG IVPB SCH (05:16)
--- NOTE | 2017-06-21 06:32 | CP.PCM.PN ---
<Damaso Saldana - Last Filed: 06/21/17 08:30> Subjective - Date & Time of Evaluation Date of Evaluation: 06/21/17 Time of Evaluation: 05:30 - Subjective Subjective: GI Progress note: Pt seen and examined at bedside. No acute events overnight. Pt states that she had a normal BM this morning and only 1 episode of diarrhea yesterday in the morning. She denies any abd pain, nausea or vomiting. Tolerating diet. 12 Point ROS performed and negative other than stated above. Objective - Vital Signs/Intake and Output Vital Signs (last 24 hours): Temp Pulse Resp BP Pulse Ox 97.9 F 60 20 113/61 96 06/20/17 22:00 06/20/17 22:00 06/20/17 22:00 06/20/17 22:00 06/20/17 22:00 Intake and Output: 06/20/17 06/21/17 18:59 06:59 Intake Total 480 Balance 480 - Medications Medications: Current Medications Amlodipine Besylate (Norvasc) 5 mg PO DAILY [facility] Last Admin: 06/20/17 09:26 Dose: 5 mg Artificial Tears (Artificial Tears) 0 ml OU Q4H PRN PRN Reason: Dry eyes Last Admin: 06/20/17 21:01 Dose: 1 drop Celecoxib (Celebrex) 100 mg PO DAILY [facility] Last Admin: 06/20/17 09:25 Dose: 100 mg Enoxaparin Sodium (Lovenox) 40 mg SC DAILY [facility] Last Admin: 06/20/17 09:26 Dose: 40 mg Hydromorphone HCl (Dilaudid) 1 mg IVP Q8H PRN PRN Reason: Pain, severe (8-10) Metronidazole (Flagyl) 500 mg in 100 mls @ 100 mls/hr IVPB Q8 [facility] Last Admin: 06/21/17 05:16 Dose: 100 mls/hr Potassium Chloride 10 meq/ (Dextrose/Sodium Chloride) 1,005 mls @ 100 mls/hr IV .Q10H3M [facility] Last Admin: 06/20/17 19:57 Dose: Not Given Ciprofloxacin (Cipro 400mg/200ml Dsw) 400 mg in 200 mls @ 133 mls/hr IVPB Q12H [facility] Last Admin: 06/21/17 00:10 Dose: 133 mls/hr Kzhhm-5-Lanu Ethyl Esters (Lovaza) 1 gm PO DAILY [facility] Last Admin: 06/20/17 09:26 Dose: 1 gm Pantoprazole Sodium (Protonix Ec Tab) 40 mg PO DAILY [facility] Last Admin: 06/20/17 09:26 Dose: 40 mg Rosuvastatin Calcium (Crestor) 20 mg PO HS [facility] Last Admin: 06/20/17 21:02 Dose: 20 mg - Labs Labs: 06/20/17 07:23 06/20/17 07:23 - Constitutional Appears: No Acute Distress - Head Exam Head Exam: ATRAUMATIC, NORMOCEPHALIC - Eye Exam Eye Exam: EOMI Pupil Exam: NORMAL ACCOMODATION - ENT Exam ENT Exam: Mucous Membranes Moist - Respiratory Exam Respiratory Exam: Clear to Ausculation Bilateral. absent: Rales, Wheezes - Cardiovascular Exam Cardiovascular Exam: RRR, +S1, +S2 - GI/Abdominal Exam GI & Abdominal Exam: Soft, Normal Bowel Sounds. absent: Distended, Tenderness, Organomegaly - Extremities Exam Extremities Exam: absent: Calf Tenderness, Tenderness - Neurological Exam Neurological Exam: Alert, Awake, Oriented x3 - Psychiatric Exam Psychiatric exam: Normal Mood - Skin Skin Exam: Dry, Intact, Warm Assessment and Plan - Assessment and Plan (Free Text) Assessment: 76 F with PMHx of HTN, HLD, and chronic back pain presents to the ED with abdominal pain accompanied with nausea and vomiting. CT abd&pelv with IV contrast showed enteritis - consider inflammatory, infectious, or ischemia. GI team consulted for abdominal pain. 1. Non-specific enteritis with small bowel wall thickening 2. Sudden onset abdominal pain w/ diarrhea 3. Hypertension 4. HLD - May discharge today from GI standpoint. Upon discharge continue Cipro and Flagyl for another 2 days. - Supportive care - Diarrhea improving - Altered GI diet, advance as tolerated - Replete electrolytes as needed - Anti-emetic therapy PRN - Protonix 40mg IVP daily - F/u blood culture - F/u stool studies - C. diff negative - Patient would benefit from outpatient elective colonoscopy in 6-8 weeks - Will cont to monitor patients clinical course Case and plan was reviewed and discussed in detail with Dr Pimentel. <Niko Pimentel - Last Filed: 06/21/17 14:00> Objective - Vital Signs/Intake and Output Vital Signs (last 24 hours): Temp Pulse Resp BP Pulse Ox 97.7 F 62 20 106/63 97 06/21/17 07:35 06/21/17 08:19 06/21/17 08:19 06/21/17 07:35 06/21/17 08:19 - Medications Medications: Current Medications Amlodipine Besylate (Norvasc) 5 mg PO DAILY [facility] Last Admin: 06/20/17 09:26 Dose: 5 mg Artificial Tears (Artificial Tears) 0 ml OU Q4H PRN PRN Reason: Dry eyes Last Admin: 06/20/17 21:01 Dose: 1 drop Celecoxib (Celebrex) 100 mg PO DAILY [facility] Last Admin: 06/21/17 09:07 Dose: 100 mg Enoxaparin Sodium (Lovenox) 40 mg SC DAILY [facility] Last Admin: 06/21/17 09:07 Dose: 40 mg Hydromorphone HCl (Dilaudid) 1 mg IVP Q8H PRN PRN Reason: Pain, severe (8-10) Metronidazole (Flagyl) 500 mg in 100 mls @ 100 mls/hr IVPB Q8 [facility] Last Admin: 06/21/17 05:16 Dose: 100 mls/hr Potassium Chloride 10 meq/ (Dextrose/Sodium Chloride) 1,005 mls @ 100 mls/hr IV .Q10H3M [facility] Last Admin: 06/20/17 19:57 Dose: Not Given Ciprofloxacin (Cipro 400mg/200ml Dsw) 400 mg in 200 mls @ 133 mls/hr IVPB Q12H [facility] Last Admin: 06/21/17 12:18 Dose: 133 mls/hr Iozbq-0-Oyfr Ethyl Esters (Lovaza) 1 gm PO DAILY [facility] Last Admin: 06/21/17 09:07 Dose: 1 gm Pantoprazole Sodium (Protonix Ec Tab) 40 mg PO DAILY [facility] Last Admin: 06/21/17 09:07 Dose: 40 mg Rosuvastatin Calcium (Crestor) 20 mg PO HS [facility] Last Admin: 06/20/17 21:02 Dose: 20 mg - Labs Labs: 06/20/17 07:23 06/20/17 07:23 Attending/Attestation - Attestation I have personally seen and examined this patient.: Yes I have fully participated in the care of the patient.: Yes I have reviewed all pertinent clinical information, including history, physical exam and plan: Yes Notes (Text): 06/21/17 13:58 I have seen and examined patient with GI fellow and certified ophthalmic medical technician. No acute events overnight, she is seen resting in bed comfortably. She describes having one bowel movement overnight, formed. She denies abdominal pain, nausea, vomiting, fever/chills. Tolerating PO diet without difficulty. HTN Hyperlipidemia Abdominal pain, diarrhea - enteritis unclear etiology - Continue with diet as tolerated - Would continue antibiotic therapy for additional 2 days - Follow up stool studies - From GI standpoint, ok to discharge patient home with subsequent outpatient follow up and colonoscopy. Office contact information provided to patient. No further planned interventions, will sign off case. Please reconsult as necessary, thank you.
[2017-06-21 08:14] VITALS: BP 106/63; TEMP 97.7; O2SAT 97
[2017-06-21 08:19] VITALS: PULSE 62
[2017-06-21] MEDS: Enoxaparin 40 mg Syringe SC SCH (09:07)
[2017-06-21] MEDS: Pantoprazole 40 mg EC Tab PO SCH (09:07)
[2017-06-21] MEDS: Omega-3-Acid Ethyl Esters 1 GM Cap PO SCH (09:07)
--- NOTE | 2017-06-21 13:40 | CP.PCM.PN ---
Subjective - Date & Time of Evaluation Date of Evaluation: 06/21/17 Time of Evaluation: 13:38 - Subjective Subjective: PATIENT WAS ADMITTED FOR ABDOMINAL PAIN; PATIENT WAS ABLE TO AMBULATE WITH DAUGHTER THIS MORNING; D DENIES ABDOMINAL PAIN; CHEST PAIN OR SOB PATIENT STATE THAT SHE HAD A BM AND DENIES DIARRHEA NO SIGN OF DISTRESS NOTED Objective - Vital Signs/Intake and Output Vital Signs (last 24 hours): Temp Pulse Resp BP Pulse Ox 97.7 F 62 20 106/63 97 06/21/17 07:35 06/21/17 08:19 06/21/17 08:19 06/21/17 07:35 06/21/17 08:19 - Medications Medications: Current Medications Amlodipine Besylate (Norvasc) 5 mg PO DAILY [facility] Last Admin: 06/20/17 09:26 Dose: 5 mg Artificial Tears (Artificial Tears) 0 ml OU Q4H PRN PRN Reason: Dry eyes Last Admin: 06/20/17 21:01 Dose: 1 drop Celecoxib (Celebrex) 100 mg PO DAILY [facility] Last Admin: 06/21/17 09:07 Dose: 100 mg Enoxaparin Sodium (Lovenox) 40 mg SC DAILY [facility] Last Admin: 06/21/17 09:07 Dose: 40 mg Hydromorphone HCl (Dilaudid) 1 mg IVP Q8H PRN PRN Reason: Pain, severe (8-10) Metronidazole (Flagyl) 500 mg in 100 mls @ 100 mls/hr IVPB Q8 [facility] Last Admin: 06/21/17 05:16 Dose: 100 mls/hr Potassium Chloride 10 meq/ (Dextrose/Sodium Chloride) 1,005 mls @ 100 mls/hr IV .Q10H3M [facility] Last Admin: 06/20/17 19:57 Dose: Not Given Ciprofloxacin (Cipro 400mg/200ml Dsw) 400 mg in 200 mls @ 133 mls/hr IVPB Q12H [facility] Last Admin: 06/21/17 12:18 Dose: 133 mls/hr Upnis-0-Ajar Ethyl Esters (Lovaza) 1 gm PO DAILY [facility] Last Admin: 06/21/17 09:07 Dose: 1 gm Pantoprazole Sodium (Protonix Ec Tab) 40 mg PO DAILY [facility] Last Admin: 06/21/17 09:07 Dose: 40 mg Rosuvastatin Calcium (Crestor) 20 mg PO HS [facility] Last Admin: 06/20/17 21:02 Dose: 20 mg - Labs Labs: 06/20/17 07:23 06/20/17 07:23 Assessment and Plan - Assessment and Plan (Free Text) Assessment: PATIENT SEEN AND EXAMINED AT THE BEDSIDE DIET WAS ADVANCE TO REGULAR AND PATIENT ABLE TO TOLERATED LUNG SOUND CLEAR POSITIVE BOWEL SOUND ALL 4 QUADRANT DISCUSS JOSE WHO COVER FOR Sharri AMSE AND DR ROMEO WHO AGREE AND CLEAR PATIENT FOR DC FOLLOW UP WITH DR Sharri AMES IN 1-2 WEEKS AT HIS OFFICE ---CALL FOR APOINTMENT FOLLOW UP WITH DR FRANCO 6-8 WEEK AT HIS OFFICE FOR F/U COLONOSCOPY OUT PATIENT ---CALL FOR APPOINTMENT CONTINUE TO TAKE ALL YOUR HOME MEDICATION DIRECTED NEW PRESCRIPTION GIVEN: CIPRO 500MG EVERY 12 HOURS BYMOUTH FOR 2 DAYS FLAGYL 500MG BY MOUTH EVERY 8 HOURS FOR 2 DAYS BACID ACTIVITY TOLERATED CALL DR AMES OR GO TO THE EMERGENCY ROOM IF SYMPTOMS RETURN OR WORSENING DISCUSS WITH PATIENT AND PATIENT'S DAUGHTER WHO AGREE AND VERBALIZED UNDERSTANDING
== END 2017-06-21 14:14 | disposition home or self-care (01) | DRG 392 ==
LOC: C.ER 18:50 → C.6T 23:10 → C.5S 06-20 09:46
PROVIDERS: ADMIT Internal Medicine Nephrology; ATTEND Internal Medicine Nephrology
DX: K52.9 Noninfective gastroenteritis and colitis, unspecified (principal); D72.825 Bandemia; I10 Essential (primary) hypertension; E78.5 Hyperlipidemia, unspecified; G89.29 Other chronic pain; M54.9 Dorsalgia, unspecified